=== PATIENT | male | born 1985 | race African-American/Black ===

== ENCOUNTER 2017-02-14 23:05 | Emergency (ER) | payer OTHER ==
--- NOTE | 2017-02-15 00:20 | ED ---
Extremity Problem HPI - General Chief complaint: Extremity Problem,Nontraumatic Stated complaint: Knees Swelling Time Seen by Provider: 02/14/17 23:57 Source: patient, RN notes reviewed Mode of arrival: wheelchair Limitations: no limitations - History of Present Illness Initial comments: This is a 32-year-old male presents emergency Department chief complaint bilateral knee pain, swelling. States over the last 1-2 days had pain and swelling with no trauma. Patient did admit to having prior left patella tendon repaired at the end of November. Patient states that he's had some ongoing pain with this. Patient states his pain is uncontrolled at this time. Patient does have a history of gout. Patient denies fever, chills. Patient states he is able to ambulate but states is very painful denies any ankle pain, calf pain or any pain proximal to his knees. Denies any paresthesias. - Related Data Home Medications Medication Instructions Recorded Confirmed Allopurinol [Zyloprim] 100 mg PO DAILY 02/14/17 02/14/17 Colchicine 0.6 mg PO DAILY 02/14/17 02/14/17 oxyCODONE HCL/ACETAMINOPHEN 1 tab PO Q6HR PRN 02/14/17 02/14/17 [Percocet 10-325 mg] Previous Rx's Medication Instructions Recorded Indomethacin [Indocin] 50 mg PO TID #30 capsule 02/15/17 Allergies Allergy/AdvReac Type Severity Reaction Status Date / Time No Known Allergies Allergy Verified 02/14/17 23:38 Review of Systems ROS Statement: Those systems with pertinent positive or pertinent negative responses have been documented in the HPI. ROS Other: All systems not noted in ROS Statement are negative. Past Medical History Past Medical History: Asthma Additional Past Medical History / Comment(s): Gout History of Any Multi-Drug Resistant Organisms: None Reported Past Surgical History: Orthopedic Surgery Additional Past Surgical History / Comment(s): Left knee patellar tendon repair. Past Psychological History: No Psychological Hx Reported Smoking Status: Current every day smoker Past Alcohol Use History: Daily Past Drug Use History: None Reported General Exam Limitations: no limitations General appearance: alert, in no apparent distress Respiratory exam: Present: normal lung sounds bilaterally. Absent: respiratory distress, wheezes, rales, rhonchi, stridor Cardiovascular Exam: Present: normal rhythm, tachycardia, normal heart sounds. Absent: systolic murmur, diastolic murmur, rubs, gallop, clicks Extremities exam: Present: other (Bilateral knees minimal swelling there is old surgical scar noted to the left knee patient reports pain with range of motion and palpation diffusely legs are neurovascular intact there is no calf tenderness and no tenderness proximal to the knees) Neurological exam: Present: alert, oriented X3, CN II-XII intact. Absent: motor sensory deficit Skin exam: Present: warm, dry, intact, normal color. Absent: rash Course Vital Signs 02/14/17 02/15/17 23:31 00:25 Temperature 99.8 F H 98.9 F Pulse Rate 117 H 118 H Respiratory 18 20 Rate Blood Pressure 140/87 159/89 O2 Sat by Pulse 98 98 Oximetry Medical Decision Making - Medical Decision Making 32-year-old male presented for knee pain. Patient has had postsurgical changes of the left there is a joint effusion noted on the right. Patient has mild inflammatory change and his CRP. This most likely is related to postsurgical possible gout as his uric acid is 8. Patient states he has had gout in his knees. Patient will be treated with pain medication, anti-inflammatories. Patient will follow-up with his surgeon. Return parameters were discussed. There is no erythema no warmth to his knees no evidence of septic joint. - Lab Data Result diagrams: 02/15/17 00:45 02/15/17 00:45 Lab Results 02/15/17 02/15/17 Range/Units 00:45 00:45 WBC 12.4 H (3.8-10.6) k/uL RBC 5.53 (4.30-5.90) m/uL Hgb 16.7 (13.0-17.5) gm/dL Hct 48.9 (39.0-53.0) % MCV 88.4 (80.0-100.0) fL MCH 30.3 (25.0-35.0) pg MCHC 34.2 (31.0-37.0) g/dL RDW 13.1 (11.5-15.5) % Plt Count 235 (150-450) k/uL Neutrophils % 79 % Lymphocytes % 12 % Monocytes % 7 % Eosinophils % 1 % Basophils % 0 % Neutrophils # 9.8 H (1.3-7.7) k/uL Lymphocytes # 1.4 (1.0-4.8) k/uL Monocytes # 0.8 (0-1.0) k/uL Eosinophils # 0.1 (0-0.7) k/uL Basophils # 0.0 (0-0.2) k/uL ESR 6 (0-15) mm/hr Sodium 139 (137-145) mmol/L Potassium 4.0 (3.5-5.1) mmol/L Chloride 100 (98-107) mmol/L Carbon Dioxide 27 (22-30) mmol/L Anion Gap 12 mmol/L BUN 7 L (9-20) mg/dL Creatinine 0.90 (0.66-1.25) mg/dL Est GFR (MDRD) Af Amer >60 (>60 ml/min/1.73 sqM) Est GFR (MDRD) Non-Af >60 (>60 ml/min/1.73 sqM) Glucose 123 H (74-99) mg/dL Uric Acid 8.0 (3.5-8.5) mg/dL Calcium 9.4 (8.4-10.2) mg/dL Total Bilirubin 0.7 (0.2-1.3) mg/dL AST 30 (17-59) U/L ALT 44 (21-72) U/L Alkaline Phosphatase 99 (38-126) U/L C-Reactive Protein 29.7 H (<10.0) mg/L Total Protein 7.3 (6.3-8.2) g/dL Albumin 4.1 (3.5-5.0) g/dL Disposition Clinical Impression: Gout, Knee joint effusion, Knee pain Disposition: HOME SELF-CARE Condition: Stable Instructions: Swollen Knee Joint (ED) Additional Instructions: Follow-up with your orthopedic physician as directed.Please return to the Emergency Department if symptoms worsen or any other concerns. Prescriptions: Indomethacin [Indocin] 50 mg PO TID #30 capsule Referrals: Nonstaff,Physician [Primary Care Provider] - 1-2 days Time of Disposition: 02:26
[2017-02-15 00:57] LABS: Basophils % (A) 0 %; CH 30.7; CHCM 34.8; Eosinophils # (A) 0.1 k/uL (0-0.7); Eosinophils % (A) 1 %; HCT 48.9 % (39.0-53.0); HDW 2.47; HGB 16.7 gm/dL (13.0-17.5); Luc # (Auto) 0.15; Luc % (Auto) 1; Lymphocytes # (A) 1.4 k/uL (1.0-4.8); Lymphocytes % (A) 12 %; MCH 30.3 pg (25.0-35.0); MCHC 34.2 g/dL (31.0-37.0); MCV 88.4 fL (80.0-100.0); Mean Platelet Volume 6.5; Monocytes # (A) 0.8 k/uL (0-1.0); Monocytes % (A) 7 %; Neutrophils # (A) 9.8 k/uL (1.3-7.7); Neutrophils % (A) 79 %; RBC 5.53 m/uL (4.30-5.90); RDW 13.1 % (11.5-15.5); WBC 12.4 k/uL (3.8-10.6)
[2017-02-15 01:07] LABS: ALT 44 U/L (21-72); AST 30 U/L (17-59); Alkaline Phosphatase 99 U/L (38-126); Anion Gap 12 mmol/L; Blood Urea Nitrogen 7 mg/dL (9-20); Calcium 9.4 mg/dL (8.4-10.2); Carbon Dioxide 27 mmol/L (22-30); Chloride 100 mmol/L (98-107); Glucose 123 mg/dL (74-99); Non-African American GFR(MDRD) >60 (>60 ml/min/1.73 sqM); Sodium 139 mmol/L (137-145); Total Bilirubin 0.7 mg/dL (0.2-1.3); Total Protein 7.3 g/dL (6.3-8.2)
--- NOTE | 2017-02-15 01:27 | XR ---
EXAM: XR Left Knee, 3 views XR Right Knee, 3 views CLINICAL HISTORY: Reason: Pain TECHNIQUE: Three views of the bilateral knees. COMPARISON: No relevant prior studies available. FINDINGS: Bones/joints: Moderate right knee effusion. No acute fracture or malalignment. Mild degenerative spurring of the left tibial spine. Bilateral patella marilyn. Small corticated osseous fragment along the inferior aspect of the right patella is favored to represent the sequela of remote trauma. Soft tissues: Left anterior soft tissue edema. IMPRESSION: Moderate right knee effusion. No acute osseous abnormality.
[2017-02-15 01:36] LABS: C Reactive Protein 29.7 mg/L (<10.0)
[2017-02-15 02:02] LABS: Erythrocyte Sedimentation Rate 6 mm/hr (0-15)
[2017-02-15] MEDS ORDERED: KETOROLAC 30 MG/ML 1 ML VIAL IVP STA (02:24)
[2017-02-15] MEDS ORDERED: ONDANSETRON 4 MG/2 ML VIAL IVP STA (02:24)
[2017-02-15] MEDS ORDERED: MORPHINE SULFATE 4 MG/ML SYRINGE IVP STA (02:24)
[2017-02-15] MEDS ORDERED: COLCHICINE 0.6 MG TAB PO STA ×2 (02:35)
[2017-02-15 02:58] VITALS: BP 164/75; PULSE 100; RESP 18; TEMP 98.7
== END 2017-02-15 03:12 | disposition home or self-care (01) ==
LOC: EC 23:05
DX: M10.062 Idiopathic gout, left knee (principal); M10.061 Idiopathic gout, right knee; M25.461 Effusion, right knee; F17.200 Nicotine dependence, unspecified, uncomplicated; Z79.899 Other long term (current) drug therapy; Z98.890 Other specified postprocedural states
CPT/HCPCS: 36415; 80053; 85652; 84550; 85025; 86140; 73562; 99283; 96374; 96375 ×2; J2270; J2405; J1885